=== PATIENT | male | born 1950 | race Caucasian/White ===

== ENCOUNTER 2023-07-22 13:55 | Emergency (ER) | payer OTHER, SELFPAY ==
[2023-07-22 13:58] VITALS: BP 144/85
[2023-07-22 14:19] LABS: % Basophils 0.9 % (0-2); % Eosinophils 1.8 % (0-6); % Immature Granulocytes 0.3 % (0-0.5); % Lymphocytes 26.8 % (20.5-51.1); % Neutrophils 63.2 % (42.2-75.2); Absolute Basophils 0.1 10^3/uL (0-0.2); Absolute Eosinophils 0.1 10^3/uL (0-0.7); Absolute Lymphocytes 1.8 10^3/uL (1.2-3.4); Absolute Monocytes 0.5 10^3/uL (0.1-0.6); Absolute Neutrophils 4.2 10^3/uL (1.4-6.5); Hematocrit 44.5 % (39.0-52.0); Hemoglobin 15.5 g/dL (13.0-18.0); Mean Corp Hgb Conc. 34.8 g/dL (33.0-37.0); Mean Corpuscular Hgb 31.4 pg (27.0-31.0); Mean Corpuscular Volume 90.3 fL (80.0-94.0); Mean Platelet Volume 9.6 fL (7.4-10.4); Nucleated Red Blood Cells % 0 % (-); Platelet Count 196 10^3/uL (130-400); Red Blood Cell Count 4.93 10^6/uL (4.70-6.10); White Blood Cell Count 6.7 10^3/uL (4.8-10.8)
[2023-07-22 14:26] LABS: INR 1.07; PT 13.9 Sec (11.4-14.6)
[2023-07-22 14:27] LABS: ALT (SGPT) 25 U/L (0-50); AST (SGOT) 23 U/L (17-59); Albumin 4.7 g/dl (3.5-5.0); Alkaline Phosphatase 54 U/L (38-126); Blood Urea Nitrogen 22 mg/dl (9-20); Calcium 9.2 mg/dl (8.4-10.2); Carbon Dioxide 25 mmol/L (22-30); Chloride 105 mmol/L (98-107); Glucose 119 mg/dl (70-99); Potassium 3.8 mmol/L (3.5-5.1); Sodium 135 mmol/L (135-145); Total Bilirubin 0.7 mg/dl (0.2-1.3); Total Protein 6.9 g/dl (6.3-8.2); eGFR > 60.00
[2023-07-22 14:38] LABS: Troponin I < 0.012 ng/ml
--- NOTE | 2023-07-22 15:42 | ED.GENMED ---
History of Present Illness
General
Chief Complaint: Chest Pain
Time Seen by Provider: 07/22/23 15:42
Travel History
Have you had any contact with someone who has COVID-19?: No
Do you have any symptoms of coronavirus? Fever > 100 degrees, chills, cough, shortness of breath, sore throat, loss of taste or smell, muscle aches, or headache?: No
History of Present Illness
History of Present Illness:
HPI: Patient had a routine office visit at primary care office and was found to be in new onset A-fib. He states he has been taking care of his ill mother who recently broke her hip and he states he has been under a lot of stress. He does not
clearly feel any palpitations or any other symptoms in his chest. He never had any chest pain.
EXAM:
GENERAL: Well appearing in no distress
HEENT: Moist oral mucosa
CARDIOVASCULAR: No murmurs, borderline tach heart rate, irregular rhythm, No chest wall tenderness
PULMONARY: No respiratory distress, breath sounds are clear and equal
ABDOMEN: Soft with no peritoneal signs, no tenderness
NEUROLOGIC: Excellent strength all extremities, no coordination deficits
PSYCHIATRIC: Appropriate mental status, normal insight and judgement, appears somewhat anxious
EXTREMITIES: Nontender, no edema, moves all extremities equally
SKIN: No rash, no lesions
TIME OF INITIAL ENCOUNTER: 3:50 PM
NUMBER AND COMPLEXITY OF PROBLEMS ADDRESSED AT THE ENCOUNTER
� Chronic conditions affecting care: High blood pressure, hyperlipidemia, diverticular disease, anxiety
� Acute Exacerbation and/or Progression of Chronic Illness: This is an acute problem
� Differential Diagnosis includes: New onset atrial fibrillation, electrolyte normality, thyroid disease, stress/anxiety
AMOUNT AND/OR COMPLEXITY OF DATA TO BE REVIEWED AND ANALYZED
� I performed an independent evaluation of and my interpretation is:
EKG: A-fib rate of 139, nonspecific ST abnormality�A-fib is new in comparison to 05/29/2020
CT:
X-rays:
Laboratory Studies: CBC normal, chemistries including troponin negative, TSH normal
Other:
� Review of other/old records: I reviewed records, the patient was admitted here in 2019 with ASIM/anxiety and had a robotic sigmoidectomy at that time
� Clinical information was obtained by an independent historian: I spoke to the at bedside
� Prescriptions/Medications Considered but not given:
� Further testing considered but not performed:
RISK OF COMPLICATIONS AND/OR MORBIDITY OR MORTALITY OF PATIENT MANAGEMENT
� Social determinants of health affecting care: Lives at home
� Discussion with other providers: Discussed with Dr. Carlin who agrees with Pascual and Eulalio as outpatient
� Escalation of care including admission/observation vs risk of discharge considered: The patient is found to be in new onset rapid atrial fibrillation with initial rate of 139. 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 I
received a message from Ayse Elder indicating the patient has been scheduled for an appoint with Dr. South tomorrow at 11:20 AM. We took him off the Cardizem drip and his heart rate went from the 80s to the 90s but overall fairly well-controlled
after oral beta-mita
Past History
Past History
ED Past Medical History: HTN, Hypercholesterolemia, Psychiatric (anxiety) and Other (diverticulosis)
Social History
Tobacco: Non-smoker
Alcohol: None
Family History
Family History: Other (He has a father who had bladder and colon cancer)
Phy Exam
Physical Exam
Physical Exam:
See HPI
Scores
Heart Score for Chest Pain Patients
STEMI patient?: Not applicable
Course
Orders/Labs/Results
Orders:
Orders
07/22/23 13:58
Electrocardiogram (*1) Urgent
Reason for Study: Atrial Fibrillation
EKG- Treatment ONCE
07/22/23 14:06
Complete Blood Count/With Diff Urgent
Comprehensive Metabolic Panel Urgent
PT/INR [Prothrombin Time] Urgent
TSH Reflex To Free T4 Urgent
Comment: ADD ON
Troponin I Urgent
07/22/23 15:55
Add On- LAB Urgent
Tests Added?: TSH reflex free T4
07/22/23 15:56
Diltiazem HCl [Cardizem] 10 mg IV NOW STA
07/22/23 16:00
Diltiazem 125 mg/125 ml Nss [Cardizem] 125 mg in 125 ml IV PER PROTOCOL
Initial dose in mg/hr, then titrate:: 10
Titrate to keep:: Heart rate 80-100 bpm
Titrate by mg/hr:: 5 mg/hr
Frequency of titrations (minutes):: 15
Maximum dose in mg/hr:: 15
07/22/23 16:52
Apixaban [Eliquis] 5 mg PO NOW STA
Metoprolol Xl [Toprol Xl] 50 mg PO NOW STA
Abnormal Lab Results
07/22/23
14:06
MCH 31.4 H pg
(27.0-31.0)
BUN 22 H mg/dl
(9-20)
Glucose 119 H mg/dl
(70-99)
07/22/23 14:06
07/22/23 14:06
Vital Signs
Initial and Last Documented VS:
Initial Vital Signs
Temp Pulse Resp BP Pulse Ox
98.0 F 95 16 144/85 98
07/22/23 13:58 07/22/23 13:58 07/22/23 13:58 07/22/23 13:58 07/22/23 13:58
Last Documented Vital Signs
Temp Pulse Resp BP Pulse Ox
98.0 F 85 16 131/84 98
07/22/23 13:58 07/22/23 17:05 07/22/23 16:45 07/22/23 16:06 07/22/23 13:58
*Critical Care Note
Total Time (30-74mins, 75-104mins- exclusive of procedures): 45 minutes
comment:
The patient's initial heart rate was around 140 bpm. He was emergently placed on Cardizem bolus and drip. His vital signs were very closely monitored while on the drip and I emergently discussed plan of care with cardiology.
ED Attending Note
-
Portions of this chart may have been created with voice recognition software.� Occasional wrong word or��sound alike� substitutions may have occurred due to the inherent limitations of voice recognition software.
Discharge Plan
Departure
Patient Disposition: Home (Routine Discharge)
Date of Disposition: 07/22/23
Time of Disposition: 17:30
Patient with high blood pressure during this ER visit?: Yes
Discharge Problem:
Atrial fibrillation with RVR
Instructions: Atrial Fibrillation (DC)
Prescriptions:
New
metoprolol succinate [Toprol XL] 50 mg tablet extended release 24 hr
50 mg PO DAILY Qty: 30 0RF
Eliquis 5 mg tablet
5 mg PO BID Qty: 60 0RF
No Action
losartan 50 MG tablet
50 mg PO DAILY
lorazepam 0.5 MG tablet
0.5 mg PO BID
Patient Comments:
05/29/20 - last filled 05/17/20 #60 for a 30 day supply
simvastatin 20 MG tablet
20 mg PO DAILY
lisinopril 10 MG tablet
10 mg PO DAILY
escitalopram oxalate 10 MG tablet
10 mg PO DAILY
potassium [Potassium-99] 99 MG tablet
99 mg PO DAILY
zinc 50 MG tablet
50 mg PO DAILY
cholecalciferol (vitamin D3) 1,000 UNITS tablet
1,000 units PO DAILY
Referrals:
Rj Wallis MD [Active] - 07/23/23 11:20 am (You have an appt to see Dr. Wallis at the [facility] office tomorrow at 11:20 AM. Please call [phone] if you need to reschedule.)
Desmond Banegas, [Family Provider] -
Activity Restrictions/Additional Instructions:
I notify Dr. Carlin of your visit here�he recommends Toprol and Eliquis. Eliquis is a blood thinner that helps prevent of stroke in the setting of atrial fibrillation. Patients who are in A-fib have a higher risk of having a stroke. You would be
at increased risk for bleeding while on Eliquis. I sent a prescription for both Toprol and Eliquis to your pharmacy. Cardiology made an appointment for you tomorrow with Dr. South at 11:20 AM at the [facility].
Interventions
Interventions:
*Risk Screen - Suicide Last Done: 07/22/23 16:17
*General Assessment Last Done: 07/22/23 16:16
*Neglect/Abuse Screening Last Done: 07/22/23 16:16
ED- Fall Risk Assessment Last Done: 07/22/23 16:17
*ED COVID-19 Vaccine History Last Done: 07/22/23 13:58
ED- Cardiac Assessment Last Done: 07/22/23 16:17
[2023-07-22 16:03] VITALS: BP 131/84
[2023-07-22] MEDS: CARDIZEM 10 MG IV (16:06)
[2023-07-22] MEDS: CARDIZEM 125 IV (16:10)
[2023-07-22 17:00] VITALS: BP 113/72
[2023-07-22] MEDS: TOPROL XL 50 MG PO (17:05)
[2023-07-22 17:06] LABS: TSH Reflex To Free T4 1.95 uIU/ml (0.47-4.68)
[2023-07-22] MEDS: ELIQUIS 5 MG PO (17:06)
== END 2023-07-22 17:52 | disposition home or self-care (01) ==
LOC: EMR 13:55
PROVIDERS: Emergency Medicine; EMERGENCY PHYSICIAN Emergency Medicine; FAMILY PHYSICIAN Family Medicine
DX: I48.91 Unspecified atrial fibrillation (principal); I10 Essential (primary) hypertension; E78.00 Pure hypercholesterolemia, unspecified; F41.9 Anxiety disorder, unspecified; K57.90 Diverticulosis of intestine, part unspecified, without perforation or abscess without bleeding; Z88.8 Allergy status to other drugs, medicaments and biological substances
CPT/HCPCS: 99291; 96365; 96376; 80053; 84443; 84484; 85025; 85610; 93005

== ENCOUNTER 2023-08-07 07:02 | Day surgery (SDC) | payer OTHER, SELFPAY ==
[2023-08-07 07:52] VITALS: BMI 29.9
[2023-08-07 07:53] LABS: Glucose - Point of Care 109 mg/dl (70-99)
--- NOTE | 2023-08-07 17:30 | ITS.CL.CARDI ---
Senior Lead Project Manager - Cardioversion
Cardioversion
Procedure Report:
Date of Procedure: 08/07/23
Procedure: Cardioversion
Indication: Symptomatic atrial fibrillation
Performing Physician: Radha Walker DO [facility]
Preprocedure transesophageal echocardiogram: No complications. See official report. No left atrial appendage thrombus.
Anticoagulation: Eliquis
Technique: The patient was brought to the holding area. Signed informed consent was obtained. A time out was called and performed. The patient was anesthetized by the anesthesia service. Transesophageal echocardiogram performed without difficulty;
no left atrial appendage thrombus. R2 pads were placed anteriorly and posteriorly. A 200 J synchronized biphasic shock failed to restore sinus rhythm. A second attempt at 300 J restored normal sinus rhythm without significant bradycardia. There
were no complications.
Conclusion: Uncomplicated cardioversion from atrial fibrillation to sinus rhythm.
Recommendation: Routine post cardioversion care. Continue long term acute care registered nurse anticoagulation.
== END 2023-08-07 09:30 | disposition home or self-care (01) ==
LOC: CATH 07:02
PROVIDERS: ATTENDING PHYSICIAN Internal Medicine Cardiovascular Disease; FAMILY PHYSICIAN Family Medicine; OTHER PHYSICIAN Internal Medicine Cardiovascular Disease
DX: I48.91 Unspecified atrial fibrillation (principal); I08.1 Rheumatic disorders of both mitral and tricuspid valves; Z79.01 Long term (current) use of anticoagulants; R06.09 Other forms of dyspnea; I10 Essential (primary) hypertension; E78.2 Mixed hyperlipidemia; E11.9 Type 2 diabetes mellitus without complications; Z82.49 Family history of ischemic heart disease and other diseases of the circulatory system; Z79.84 Long term (current) use of oral hypoglycemic drugs
CPT/HCPCS: 93312; 93320; 93325; 82962; 92960; 93005

== ENCOUNTER → 2023-10-15 09:14 | Day surgery (SDC) | payer OTHER, SELFPAY ==
[2023-10-15 10:17] LABS: Glucose - Point of Care 101 mg/dl (70-99)
== END ==
LOC: CATH 09:14
PROVIDERS: ATTENDING PHYSICIAN Internal Medicine Cardiovascular Disease; FAMILY PHYSICIAN Family Medicine; OTHER PHYSICIAN Internal Medicine Cardiovascular Disease
DX: I48.91 Unspecified atrial fibrillation (principal); I08.1 Rheumatic disorders of both mitral and tricuspid valves; Q21.12 Patent foramen ovale; I70.90 Unspecified atherosclerosis; I08.8 Other rheumatic multiple valve diseases; E11.9 Type 2 diabetes mellitus without complications; Z79.01 Long term (current) use of anticoagulants; Z79.84 Long term (current) use of oral hypoglycemic drugs
CPT/HCPCS: 93312; 93320; 93325; 82962

== ENCOUNTER 2023-10-16 08:27 | Day surgery (SDC) | payer OTHER, SELFPAY ==
[2023-10-09 08:43] VITALS: BMI 30.3
[2023-10-09 09:11] LABS: % Basophils 0.8 % (0-2); % Eosinophils 0.8 % (0-6); % Immature Granulocytes 0.2 % (0-0.5); % Lymphocytes 21.4 % (20.5-51.1); % Monocytes 7.4 % (1.7-9.3); % Neutrophils 69.4 % (42.2-75.2); Absolute Basophils 0.1 10^3/uL (0-0.2); Absolute Eosinophils 0.1 10^3/uL (0-0.7); Absolute Lymphocytes 1.3 10^3/uL (1.2-3.4); Absolute Monocytes 0.5 10^3/uL (0.1-0.6); Absolute Neutrophils 4.2 10^3/uL (1.4-6.5); Hematocrit 45.4 % (39.0-52.0); Hemoglobin 15.7 g/dL (13.0-18.0); Mean Corp Hgb Conc. 34.6 g/dL (33.0-37.0); Mean Corpuscular Hgb 31.2 pg (27.0-31.0); Mean Corpuscular Volume 90.3 fL (80.0-94.0); Mean Platelet Volume 10.3 fL (7.4-10.4); Nucleated Red Blood Cells % 0 % (-); Platelet Count 169 10^3/uL (130-400); Red Blood Cell Count 5.03 10^6/uL (4.70-6.10); Red Cell Dist. Width 12.2 % (11.5-14.5); White Blood Cell Count 6.1 10^3/uL (4.8-10.8)
[2023-10-09 09:28] LABS: INR 1.36; PT 16.6 Sec (11.4-14.6)
[2023-10-09 09:50] LABS: ALT (SGPT) 18 U/L (0-50); AST (SGOT) 18 U/L (17-59); Albumin 4.4 g/dl (3.5-5.0); Alkaline Phosphatase 36 U/L (38-126); Blood Urea Nitrogen 16 mg/dl (9-20); Calcium 9.3 mg/dl (8.4-10.2); Carbon Dioxide 28 mmol/L (22-30); Chloride 104 mmol/L (98-107); Estimated Creatinine Clearance 94 ml/min; Glucose 102 mg/dl (70-99); Magnesium 2.1 mg/dl (1.6-2.3); Potassium 4.2 mmol/L (3.5-5.1); Sodium 141 mmol/L (135-145); Total Bilirubin 1.2 mg/dl (0.2-1.3); Total Protein 6.5 g/dl (6.3-8.2); eGFR > 60.00
[2023-10-16] VITALS (12 sets, daily range): BP systolic 93–146; BP diastolic 66–105; BMI 29.6
[2023-10-16 09:31] LABS: Glucose - Point of Care 98 mg/dl (70-99)
[2023-10-16 14:53] LABS: ACT-LR - POC 298 Seconds (116-155)
[2023-10-16 15:07] LABS: ACT-LR - POC 348 Seconds (116-155)
[2023-10-16 15:35] LABS: ACT-LR - POC 329 Seconds (116-155)
[2023-10-16 16:01] LABS: ACT-LR - POC 388 Seconds (116-155)
[2023-10-16 16:23] LABS: ACT-LR - POC 184 Seconds (116-155)
--- NOTE | 2023-10-16 16:55 | ITS.CL.ABL ---
Hand Winder - Ablation
Ablation
Procedure Report:
Primary Electrical Power Engineer: Rj Wallis MD
Procedure Date: 10/16/2023
Patient History:
Patient is a pleasant 72-year-old male with past medical history significant for hypertension hyperlipidemia diabetes mellitus type 2, family history of CAD, persistent atrial fibrillation symptomatic..
See H&P for complete details.
Indication:
Symptomatic persistent atrial fibrillation
Arrhythmia Specific History:
Prior Medical Therapies for Rate and Rhythm Control:
X Beta-mita
[ ] Calcium channel-mita
[ ] Amiodarone
[ ] Dronederone
[ ] Sotalol
[ ] Flecainide
[ ] Dofetilide
[ ] Options limited by bradycardia
[ ] Options limited by comorbid renal disease
Prior Procedural Therapies for AF/AFL:
X Cardioversion
[ ] Pulmonary Vein Isolation
[ ] Posterior Wall Isolation
[ ] Additional lines (Specify)
[ ] Surgical Cifuentes-MAZE or PVI (Specify)
Procedure Performed:
X AF ablation procedure (36577) -- includes LA/CS pacing, trans-septal, 3D mapping, + ICE
[ ] +IV drug (20049)
[ ] +Other Arrhythmia (66240)
X +Other AF Line/ablation (71809)
Risks and expected recovery has been explained in detail. Alternative options have been explored, and in a shared-decision making fashion we have decided that this was the most appropriate procedure.
Method
NPO status confirmed. Grounding pad applied. Defibrillator pads applied. Continuous surface ECG, pulse oximetry, and blood pressure were monitored. Procedure was performed under general anesthesia, with anesthesia services.
Both groins were clipped, prepped with Chloraprep, and draped in sterile fashion. Time out was called. Local anesthesia administered with bupivacaine. The right and left femoral veins were accessed for catheter placement, using ultrasound guidance,
micro-puncture needle/wire, and modified seldinger technique. 3 sheaths were placed. The following catheters were used:
[ ] Tacticath SE (D/F Curve) ablation catheter
X Viewflex 9Fr ICE catheter
X Inquiry decapolar 6Fr diagnostic catheter
[ ] CRD Hex 6Fr
[ ] Arctic Front Advance Cryoballoon ([ ]28mm[ ]23mm)
[ ] Achieve Advance mapping catheter ([ ]15mm[ ]20mm)
X FlexCath Contour 12 Fr with PulseSelect PFA Catheter
X Advisor HD Grid Mapping Catheter, SE
[ ] AcusProfista AcuNav 8 Fr ICE catheter
[ ]Other: [ ]
Intracardiac ultrasound (ICE) was carefully advanced into the right atrium to guide sheath placement over a J-wire, catheter placement, guide trans-septal puncture, identify potential complications, identify anatomic structures and ensure proper
contact between ablation catheter and tissue. Posterior trace/small small pericardial effusion was noted prior to transseptal puncture. In review of transesophageal echocardiogram, there is evidence of posterior effusion as well which is small in
size.
Heparin was given prior to trans-septal puncture. Heparin was given to achieve and maintain a target ACT of 300-400 seconds throughout the procedure.
Trans-septal access was performed under ICE guidance. The trans-septal puncture was performed with a SafeSept wire through a Brockenbrough needle assembly through the steerable sheath. The wire was visualized as it entered the LSPV and system
advanced under ICE guidance and fluoroscopy into the LA. The Brockenbrough needle assembly, SafeSept wire and sheath dilator were removed under negative pressure. LA pressure was measured and recorded.
ICE and 3D mapping was performed to identify relevant cardiac structures. A careful 3D map was created to assess for regions of low-voltage and abnormal electrogram signals using HD grid mapping catheter and PulseSelect catheter. Additional mapping
was performed as outlined below.
Prior to ablation, glycopyrrolate was provided. PulseSelect catheter was advanced over J-wire to the ostium of each vein. Pulmonary vein isolation was performed with ostial and antral lesions in a circumferential manner. Contact was visualized via
EAM, ICE, fluoroscopy, and EGM signals. Posterior wall isolation was performed by anchoring the J-wire within the pulmonary vein and placing the PulseSelect catheter in contact with the posterior wall as visualized by aforementioned methods.
Following completion of ablation lesions, sinus rhythm was restored with a 200J synchronized DCCV and a post-ablation voltage/activation map was performed in sinus rhythm. Entrance and exit block were confirmed for each vein and the posterior wall.
Catheter and sheath were removed from the left atrium and post-ablation intracardiac echo evaluation was consistent with pre-ablation with no changes and unchanged trace/small posterior pericardial effusion and there is no left atrial thrombus or
left ventricle thrombus seen. Electrophysiology study was performed. Hemostasis was obtained with figure of 8 stitch for each groin and with manual pressure. Protamine was used for reversal.
Estimated Blood Loss
5-10 mL
Complications
None
Fluoroscopy: 8 minutes; 27.08 mGy; DAP 3.5
Baseline Intervals:
Rhythm: AF
QRS: 92 ms
QT: 404 ms
QTc: 364 ms
R-R: 1230 ms
Post-Procedure Intervals:
NH: 182 ms
QRS: 93 ms
QT: 400 ms
QTc: 376 ms
A-A: 1134 ms
R-R: 1134 ms
AVWB: 330 ms
AERP: 600/240 ms
Recommendations
- Bedrest with straight-leg precautions as ordered
- Admit with anticipate discharge home tomorrow after overnight observation
- Resume home medications as indicated
- Ok to resume anticoagulation tonight if patient and groin sites stable
- PPI daily for 30 days
- Plan for follow-up in office in 4-6 weeks
Edgar Rey DO
Clinical Cardiac Government Operations Consultant
cc: Rj Wallis MD; Desmond Banegas DO
--- NOTE | 2023-10-16 18:14 | PTCARENOTE ---
Assumed care of pt upon transfer from [facility] post PVI. Pt arrives awake and alert, Ox3. VSs, CM shows SB 60's, POX 94% on @ liters. Bilateral femoral veins figure 8ted remain CDI with good CMS through limbs. HOB and movement restrictions reviewed
with pt. He denies any pain or discomfort at thias time, at bedside.
[2023-10-16] MEDS: LIPITOR 20 MG PO (18:31)
[2023-10-16] MEDS: TYLENOL 650 MG PO (19:01)
[2023-10-16] MEDS: GLUCOPHAGE XR EXTENDED RELEASE 500 MG PO (19:06)
[2023-10-16] MEDS: LOTREL 5 MG/10 MG 1 CAPSULE PO (19:06)
[2023-10-16] MEDS: ATIVAN 0.5 MG PO (20:18)
[2023-10-16] MEDS: FLUSH (NSS) 1 FLUSH IV (20:18)
--- NOTE | 2023-10-16 21:00 | PTCARENOTE ---
Assumed care of pt from prev nsg shift AAOx3 w/no c/o CP or SOB. Pt had rec'd PO tylenol from prev nurse at 1901 for '2/10 chest discomfort'; Pt reported 'good relief from the Tylenol'. Pt's VS stable w/HR in the 60's & BP 113/69. Pt w/bilat groin
sites w/fig of 8's sutures clipped at 2024. Pt w/bilat groin dressings C/D/I w/no signs or symptoms of bleeding or hematoma. Pt assisted by this RN OOB to at 2119 w/bilat groin dressings remaining C/D/I w/no signs of bleeding. Pt given PRN Maalox
for indigestion. Pt w/call reyes within reach & no addtl needs. Plan of care ongoing.
[2023-10-16] MEDS: MAALOX 30 ML PO (21:45)
[2023-10-16] MEDS: ELIQUIS 5 MG PO (22:57)
[2023-10-17 04:13] VITALS: BP 102/71
[2023-10-17 05:07] LABS: Hematocrit 39.3 % (39.0-52.0); Hemoglobin 13.5 g/dL (13.0-18.0); Mean Corp Hgb Conc. 34.4 g/dL (33.0-37.0); Mean Corpuscular Volume 90.1 fL (80.0-94.0); Mean Platelet Volume 10.5 fL (7.4-10.4); Platelet Count 158 10^3/uL (130-400); Red Blood Cell Count 4.36 10^6/uL (4.70-6.10); Red Cell Dist. Width 12.3 % (11.5-14.5); White Blood Cell Count 7.3 10^3/uL (4.8-10.8)
[2023-10-17 05:36] LABS: Blood Urea Nitrogen 26 mg/dl (9-20); Calcium 8.9 mg/dl (8.4-10.2); Carbon Dioxide 25 mmol/L (22-30); Chloride 104 mmol/L (98-107); Estimated Creatinine Clearance 74 ml/min; Glucose 136 mg/dl (70-99); Magnesium 2.1 mg/dl (1.6-2.3); Potassium 3.7 mmol/L (3.5-5.1); Sodium 139 mmol/L (135-145); eGFR > 60.00
[2023-10-17 06:35] VITALS: BP 108/69
--- NOTE | 2023-10-17 07:27 | W.PN.CARDCBS ---
Addendum entered and electronically signed by Edgar Rey DO 10/17/23 08:20:
I saw and examined the patient.
The Blanchard Grinder Operator's note was reviewed and I agree with the note.
Comment:
GEN: AAO x3, comfortable
HEENT: mmm
LUNGS: CTA BL, no audible wheeze
CV: SR on tele, rrr no murmur rub or gallop
EXT: No edema; groin sites soft nontender no bleeding
NEURO: Gross non-focal
SKIN: No rash
A/P as below
Patient doing well post PVI 10/16/2023, no complaints; sinus bradycardia/sinus rhythm on monitoring manager
Continue oral anticoagulation with Eliquis 5 mg twice daily
Continue AV renee blocking agents for now reassess as outpatient
Stable for discharge from CV standpoint
Original Note:
Today's Communication / Plan
-
Cont Eliquis 5 mg BID
Remains in SR
Impression / Plan
-
PCP: Dr. Desmond Banegas
Cardiology: Dr. Wallis
Impression:
Paroxysmal atrial fibrillation
Chronic Eliquis OAC
Hyperlipidemia
DM 2
HTN
TESS 10/15/23: EF 45-50%, normal RV size and function, mild to mod MR, mild to mod TR
Plan:
-Patient remains in SR/SB following PVI 10/16/23.
-Eliquis resumed 10/16/23 PM and will be continued
-Cont outpatient dose of Toprol XL 50 mg daily
-Outpatient doses of amlodipine/benazepril 5/10 mg daily and losartan 50 mg daily to continue. Patient was taking this regimen prior to admission.]
-Stable for d/c to home 10/17/23
Progress Note - Zoology Professor
Subjective
Date of Service: October 17, 2023
He feels well
Objective
Labs:
10/17/23 04:29
10/17/23 04:29
Labs
Hgb 13.5 g/dL (13.0-18.0) 10/17/23 04:29
Hct 39.3 % (39.0-52.0) 10/17/23 04:29
Plt Count 158 10^3/uL (130-400) 10/17/23 04:29
PT 16.6 Sec (11.4-14.6) H 10/09/23 08:50
INR 1.36 10/09/23 08:50
Sodium 139 mmol/L (135-145) 10/17/23 04:29
Potassium 3.7 mmol/L (3.5-5.1) 10/17/23 04:29
BUN 26 mg/dl (9-20) H 10/17/23 04:29
Creatinine 0.9 mg/dL (0.7-1.3) 10/17/23 04:29
Glucose 136 mg/dl (70-99) H 10/17/23 04:29
Vital Signs and I&O:
Vital Signs
Temp Pulse Resp BP Pulse Ox
98.6 F 58 20 102/71 96
10/17/23 04:18 10/17/23 04:30 10/17/23 04:18 10/17/23 04:13 10/17/23 04:18
Vital Signs
Temp Pulse Resp BP Pulse Ox
98.6 F 58 20 102/71 96
10/17/23 04:18 10/17/23 04:30 10/17/23 04:18 10/17/23 04:13 10/17/23 04:18
Intake & Output
10/15/23 10/16/23 10/17/23 10/18/23
06:59 06:59 06:59 06:59
Intake Total 2680 / 2680
Output Total 700 / 700
Balance 1979 / 1979
Physical Exam
Physical Exam
GEN: AAO x3
HEENT: mmm
LUNGS: No audible wheeze
CV: SR on tele
EXT: No edema
NEURO: Gross non-focal
SKIN: No rash
--- NOTE | 2023-10-17 07:35 | W.DS.TRANS ---
DC Summary - Forex Trader
-
Discharge Instructions:
Sleep Apnea Risk High
Discharge Diagnosis/Procedures AFib, s/p ablation
Diet Low Cholesterol,Diabetic, Carb Controlled
Driving Restrictions No driving for 24 hours
Bathing Restrictions OK to Shower
Instructions:
Stand-Alone Forms: DC Instructions- Cath/EP Lab
Changes to Home Medications: Yes
Discharge Medications:
DC Medications w/original date entered in [employer]
lorazepam 0.5 mg tablet 0.5 mg PO BID anxiety 05/29/20
losartan 50 mg tablet 50 mg PO DAILY htn 05/29/20
simvastatin 20 mg tablet 40 mg PO QPM choloesterol 05/29/20
amlodipine 5 mg-benazepril 10 mg capsule 1 cap PO QPM htn 08/07/23
hydrochlorothiazide 12.5 mg tablet 12.5 mg PO DAILY htn 08/07/23
metformin 500 mg tablet,extended release 24 hr 500 mg PO BID dm 08/07/23
apixaban 5 mg tablet (Eliquis) 5 mg PO BID blood thinner 10/15/23
metoprolol succinate 50 mg tablet,extended release 24 hr (Toprol XL) 50 mg PO DAILY bp 10/15/23
pantoprazole 40 mg tablet,delayed release 40 mg PO DAILY #30 tabs 10/16/23
Home Medication Changes
New to Protonix for 30 days
Pending Results: No
[2023-10-17] MEDS: GLUCOPHAGE XR EXTENDED RELEASE 500 MG PO (07:50)
[2023-10-17] MEDS: KCL 20 MEQ PO (07:50)
[2023-10-17] MEDS: TYLENOL 650 MG PO (07:50)
[2023-10-17] MEDS: PROTONIX 40 MG PO (07:51)
[2023-10-17] MEDS: COZAAR 50 MG PO (07:51)
[2023-10-17] MEDS: ORETIC 12.5 MG PO (07:51)
[2023-10-17] MEDS: ELIQUIS 5 MG PO (07:51)
[2023-10-17] MEDS: TOPROL XL 50 MG PO (07:51)
[2023-10-17] MEDS: ATIVAN 0.5 MG PO (07:52)
== END 2023-10-17 10:10 | disposition home or self-care (01) ==
LOC: CATH 08:27
PROVIDERS: Nurse Practitioner; ATTENDING PHYSICIAN Internal Medicine Cardiovascular Disease; FAMILY PHYSICIAN Family Medicine; OTHER PHYSICIAN Internal Medicine Cardiovascular Disease
DX: I48.19 Other persistent atrial fibrillation (principal); I10 Essential (primary) hypertension; E78.5 Hyperlipidemia, unspecified; E11.9 Type 2 diabetes mellitus without complications; F41.9 Anxiety disorder, unspecified; K57.90 Diverticulosis of intestine, part unspecified, without perforation or abscess without bleeding; K63.5 Polyp of colon; Z79.84 Long term (current) use of oral hypoglycemic drugs; Z79.01 Long term (current) use of anticoagulants; Z79.899 Other long term (current) drug therapy; Z82.49 Family history of ischemic heart disease and other diseases of the circulatory system
CPT/HCPCS: C1732; C1894; C1733; C1769; C1759; 36415; 75572; 76937; 80048; 80053; 82962; 83735; 85025; 85027; 85347; 85610; 86850; 86900; 86901; 93005; 93656; Q9967

== ENCOUNTER → 2024-01-25 06:51 | Outpatient (REF) | payer OTHER, SELFPAY | LOC: RAD 06:51 | PROVIDERS: ATTENDING PHYSICIAN Family Medicine; OTHER PHYSICIAN Internal Medicine Cardiovascular Disease; REFERRING PHYSICIAN Internal Medicine Cardiovascular Disease | DX: Z13.6 Encounter for screening for cardiovascular disorders (principal) | CPT/HCPCS: 76770 ==